=== PATIENT | female | born 1990 | race Caucasian/White ===

== ENCOUNTER 2016-05-12 22:16 | Emergency (ER) | payer OTHER ==
[2016-05-12 22:26] VITALS: BP 122/88; PULSE 99; RESP 16; TEMP 97.7; O2SAT 99
--- NOTE | 2016-05-12 22:36 | EDPHY ---
H & P Time Seen by Provider: 05/12/16 22:29 HPI/ROS: CHIEF COMPLAINT: Left wrist injury HISTORY OF PRESENT ILLNESS: 25-year-old female presents to the emergency department by private vehicle with injury to her left wrist. The patient was at a bar and fell back from the bar stool injuring her left wrist. She did not hit her head or lose consciousness. Denies neck or back pain. Denies chest pain or difficulty breathing. Denies injury to the lower extremities or the right upper extremity. He has pain in her left wrist especially with movement. She is right-hand dominant. REVIEW OF SYSTEMS: Constitutional: No fever, no chills. Eyes: No double or blurry vision. ENT: No sore throat. Respiratory: No cough, no shortness of breath. Cardiac: No chest pain. Gastrointestinal: No abdominal pain, vomiting or diarrhea. Genitourinary: No dysuria. Musculoskeletal: No neck or back pain. Skin: No rashes. Neurological: No headache. Past Medical/Surgical History: Negative Social History: Single Smoking Status: Light smoker Physical Exam: General Appearance: Alert, no distress. No visible signs of trauma to her head. She is mentating normally and answering questions appropriately. She does smell strongly of alcohol. Eyes: Pupils equal and round. Extraocular motions are all intact. ENT: Mouth: Mucous membranes moist. Respiratory: No wheezing, rhonchi, or rales, lungs are clear to auscultation. Cardiovascular: Regular rate and rhythm. Gastrointestinal: Abdomen is soft and nontender, no masses, no rebound or guarding, bowel sounds normal. Neurological: Alert and oriented x 3, cranial nerves II through XII grossly intact Skin: Warm and dry, no rashes. Musculoskeletal: Nontender to palpate along the cervical, thoracic or lumbar spine. Neck is supple. Extremities: Tender to palpate diffusely to the left wrist. She is unable to fully supinate without severe pain. She has pain with movement of her face left fingers. Strong radial pulse at the left wrist. Nontender to palpate over the left elbow. Full extension of the left elbow. Left humerus is nontender. Normal gait. Full range of motion of the right upper extremity. Psychiatric: Patient is oriented X 3, there is no agitation. Constitutional: Initial Vital Signs Temperature (C) 36.5 C 05/12/16 22:19 Heart Rate 99 05/12/16 22:19 Respiratory Rate 16 05/12/16 22:19 Blood Pressure 122/88 H 05/12/16 22:19 O2 Sat (%) 99 05/12/16 22:19 O2 Delivery Mode Room Air Allergies/Adverse Reactions: No Known Allergies Allergy (Verified 05/12/16 22:26) Home Medications: Medication Instructions Recorded NK [No Known Home Meds] 05/12/16 Medical Decision Making - Diagnostics Imaging: X-rays of the left wrist reveal no fractures. This is reviewed by myself the PAC system as well as by the radiologist. Procedures: Patient was placed in Velcro thumb spica splint and examined post application in good placement with normal BUILDING OFFICIAL. ED Course/Re-evaluation: 25-year-old female presents after mechanical fall with left wrist injury. X- rays reveal no fractures. She was placed in Velcro thumb spica splint and given orthopedic referral. Differential Diagnosis: Including but not limited to fracture, dislocation, contusion, sprain - Data Points Medications Given: Discontinued Medications Ibuprofen (Motrin) 600 mg PO EDNOW ONE Stop: 05/12/16 22:54 Last Admin: 05/12/16 23:02 Dose: 600 mg Departure - Departure Disposition: Home, Routine, Self-Care Clinical Impression: Left wrist sprain Qualifiers: Encounter type: initial encounter Qualified Code(s): S63.502A - Unspecified sprain of left wrist, initial encounter Condition: Good Instructions: Wrist Sprain (ED) Additional Instructions: Splint for comfort and support. Ibuprofen 600 mg every 8 hours as needed for pain. Follow up with orthopedic surgeon next week to recheck. Return if you develop numbness or tingling in your fingers, increasing pain or any other concerns. Referrals: Laith Winslow MD [Medical Doctor] - 2-3 days without fail (Orthopedic surgeon on-call)
[2016-05-12] MEDS ORDERED: IBUPROFEN 600 MG TAB PO ONE (22:53)
== END 2016-05-12 23:10 | disposition home or self-care (01) ==
DX: S63.502A Unspecified sprain of left wrist, initial encounter (principal); F17.200 Nicotine dependence, unspecified, uncomplicated; W07.XXXA Fall from chair, initial encounter; Y92.89 Other specified places as the place of occurrence of the external cause
CPT/HCPCS: L3807

== ENCOUNTER 2017-04-19 15:13 | Emergency (ER) | payer OTHER ==
[2017-04-19 15:20] VITALS: BP 100/75; PULSE 89; RESP 16; TEMP 97.7; O2SAT 95
--- NOTE | 2017-04-19 15:20 | EDPHY ---
H & P Time Seen by Provider: 04/19/17 15:14 - Personal History Tetanus Vaccine Date: <10 years - Medical/Surgical History Hx Asthma: No Hx Chronic Respiratory Disease: No Hx Diabetes: No Hx Cardiac Disease: No Hx Renal Disease: No Hx Cirrhosis: No Hx Alcoholism: No Hx HIV/AIDS: No Hx Splenectomy or Spleen Trauma: No Other PMH: anxiety, depression, UTI, kidney infection, ORIF to R wrist. - Social History Smoking Status: Light smoker Constitutional: Initial Vital Signs Temperature (C) 36.5 C 04/19/17 15:18 Heart Rate 89 04/19/17 15:18 Respiratory Rate 16 04/19/17 15:18 Blood Pressure 100/75 04/19/17 15:18 O2 Sat (%) 95 04/19/17 15:18 O2 Delivery Mode Room Air Allergies/Adverse Reactions: No Known Allergies Allergy (Verified 04/19/17 15:17) Home Medications: Medication Instructions Recorded Cephalexin [Keflex (RX)] 500 mg PO TID #30 cap 04/19/17 Paxil 04/19/17 Medical Decision Making ED Course/Re-evaluation: CHIEF COMPLAINT: Sore throat, hoarseness HISTORY OF PRESENT ILLNESS: The patient is a 26 y/o female with a history of anxiety and depression complaining of sore throat and hoarseness for the last week. Pain is mild in severity. She denies inability to swallow or difficulty breathing. No associated rhinorrhea, cough, fever, myalgias, nausea, vomiting, abdominal pain, diarrhea, or other complaints. REVIEW OF SYSTEMS: A 10 point review of systems was performed and is negative with the exception of the elements mentioned in the history of present illness. PHYSICAL EXAM: HR, BP, O2 Sat, RR. Temp noted General Appearance: Alert, well hydrated, appropriate, and non-toxic appearing. Head: Atraumatic without scalp tenderness or obvious injury Eyes: Pupils equal, round, reactive to light and accommodation, EOMI, no trauma , no injection. Ears: Clear bilaterally, no perforation, normal landmarks Nose: Atraumatic, no rhinorrhea, clear. Throat: Pharyngeal erythema with bilateral tonsillar exudates, no lesions, no evidence of abscess, uvula midline, mucus membranes moist. Neck: Supple, nontender, no lymphadenopathy. Respiratory: No retractions, no distress, no wheezes, and no accessory muscle use. Lungs are clear to auscultation bilaterally. Mild hoarseness. Cardiovascular: Regular rate and rhythm, no murmurs, rubs, or gallops. Good capillary refill all extremities. Gastrointestinal: Abdomen is soft, nontender, non-distended, no masses, no rebound, no guarding, no peritoneal signs. Musculoskeletal: Normal active ROM of all extremities, atraumatic. Neurological: Alert, appropriate, and interactive. Nonfocal neuro exam. Skin: No rashes, good turgor, no nodules on palpation. Past medical history: anxiety, depression, UTI, kidney infection Past surgical history: ORIF to R wrist Family history: Noncontributory Social history: Lives in [place]. Employed. DIFFERENTIAL DIAGNOSIS: The differential diagnosis for the patient's fever included but was not limited to pneumonia, urinary tract infection, viral syndrome, meningitis, and sepsis. MEDICAL DECISION MAKING: This is a 26 y/o female who presents with a 1-week history of sore throat with a hoarse voice. She has pharyngeal erythema with bilateral tonsillar exudates on exam. No evidence of peritonsillar abscess or airway compromise. Clinical presentation is consistent with bacterial throat infection. She will receive one does of 60mg PO prednisone and 500mg PO Keflex here and be discharged on a course of Keflex with standard pharyngitis care and follow up instructions. Return precautions given. She is comfortable with this plan. Departure - Departure Disposition: Home, Routine, Self-Care Clinical Impression: Acute bacterial pharyngitis, Ganglion cyst of dorsum of left wrist Condition: Good Instructions: Pharyngitis (ED), Ganglion Cysts (ED) Additional Instructions: 1. Take Keflex as prescribed for throat infection. Be sure to complete the entire prescription. 2. Increase fluid intake. 3. Use Tylenol and ibuprofen as directed as needed for pain or fever. 4. Follow up with your primary care provider as needed for unimproved symptoms over the next few days. 5. Return to the ED for severe pain, difficulty breathing, inability to swallow , or other worsening of condition. Adult Pain & Fever Control: We recommend Acetaminophen (Tylenol) and Ibuprofen (Motrin,Advil) for pain and fever control. When fever is high or pain severe, both drugs can be used at the same time, but at different intervals. Please note the time differences. Your dose is: Acetaminophen 650mg every 4 to 6 hours Ibuprofen 600mg every 6-8 hours with food Note: do not take Acetaminophen with Hydrocodone (Vicodin, Lortab) or Oxycodone (Percocet). These medications also contain Acetaminophen. No more than 3000mg of Acetaminophen should be taken in 24 hours (for an adult). Dr. Bellamy is a hand specialist you can follow up with for the possible ganglion cyst on your wrist. Referrals: Luis Antonio Bellamy MD [Medical Doctor] - As per Instructions Padmini Baez MD [Medical Doctor] - As per Instructions Prescriptions: Cephalexin [Keflex (RX)] 500 mg PO TID #30 cap Report Scribed for: Fidencio Rea Report Scribed by: Margarita Daly Date of Report: 04/19/17 Time of Report: 15:31
[2017-04-19] MEDS ORDERED: CEPHALEXIN 500 MG CAP PO ONE (15:33)
[2017-04-19] MEDS ORDERED: predniSONE 20 MG TAB PO ONE (15:33)
== END 2017-04-19 15:51 | disposition home or self-care (01) ==
DX: J02.8 Acute pharyngitis due to other specified organisms (principal); B96.89 Other specified bacterial agents as the cause of diseases classified elsewhere; M67.432 Ganglion, left wrist; F17.200 Nicotine dependence, unspecified, uncomplicated
CPT/HCPCS: J7512

== ENCOUNTER 2018-05-18 10:39 | Observation (INO) | payer OTHER ==
[2018-05-18 11:01] LABS: PLATELET COUNT 389 10^3/uL (150-400)
[2018-05-18] MEDS ORDERED: NS 1,000 ML IV ONE ×2 (11:15→11:57)
--- NOTE | 2018-05-18 11:18 | EDPHY ---
H & P Time Seen by Provider: 05/18/18 10:44 HPI/ROS: CHIEF COMPLAINT: Vomiting HISTORY OF PRESENT ILLNESS: 27-year-old female presents to the emergency department by ambulance with several days of vomiting. The patient states that she has been trying to help her symptoms why smoking marijuana and drinking alcohol. She describes mild diffuse abdominal pain. She complains of a headache. No fevers or chills. No chest pain or difficulty breathing. She feels very anxious. She states that she has never had these symptoms in the past. No reported trauma. No urinary symptoms. REVIEW OF SYSTEMS: Constitutional: No fever, no chills. Eyes: No double or blurry vision. ENT: No sore throat. Respiratory: No cough, no shortness of breath. Cardiac: No chest pain. Gastrointestinal: Abdominal pain, vomiting. No diarrhea. Genitourinary: No dysuria. Musculoskeletal: No neck or back pain. Skin: No rashes. Neurological: No headache. (Cheyenne Patton) Past Medical/Surgical History: Marijuana use, alcohol (Cheyenne Patton) Social History: Single (Cheyenne Patton) Physical Exam: General Appearance: Extremely anxious. Hyperventilating. Eyes: Pupils equal and round. Extraocular motions are all intact. ENT: Mouth: Very dry. Ecchymosis noted around the left lateral orbit. Respiratory: No wheezing, rhonchi, or rales, lungs are clear to auscultation. Cardiovascular: Regular rate and rhythm. Gastrointestinal: Mild diffuse pain with palpation to the abdomen. There is no rebound, guarding or masses noted. Neurological: Alert and oriented x 3, cranial nerves II through XII grossly intact Skin: Warm and dry, no rashes. Musculoskeletal: Nontender to palpate along the cervical, thoracic or lumbar spine. Neck is supple. Extremities: Full range of motion and no peripheral edema. Psychiatric: Patient is oriented X 3, there is no agitation. (Cheyenne Patton) Constitutional: Initial Vital Signs Temperature (C) 36.6 C 05/18/18 10:54 Heart Rate 108 H 05/18/18 10:54 Respiratory Rate 18 05/18/18 10:54 Blood Pressure 109/86 H 05/18/18 10:54 O2 Sat (%) 99 05/18/18 10:54 O2 Delivery Mode Room Air Allergies/Adverse Reactions: No Known Allergies Allergy (Verified 10/05/17 07:28) Home Medications: Medication Instructions Recorded NK [No Known Home Meds] 05/18/18 Medical Decision Making ED Course/Re-evaluation: 27-year-old female presents emergency department after multiple days of vomiting. Clinically appears ill and very dehydrated. She received a total of 3 L of IV normal saline in the emergency department. She also received 1 mg of IV lorazepam. She was feeling much better. Heart rate went from 150 down to 110. Laboratory studies reveal elevated white blood cell count of nearly 35, 000. She has a creatinine of 1.7 with a normal BUN. LFTs including AST and ALT were both elevated. Conjugated bilirubin was 1.3. Patient has very mild tenderness with palpation the epigastric area. There is no rebound or guarding or masses noted. No CVA tenderness bilaterally. The patient is tremulous. Patient tells me that she drinks "half a bottle of whiskey" per day. She has never had an alcohol withdrawal related seizure. She has never had pancreatitis before. Her boyfriend recently had pancreatitis. She has no chest pain or difficulty breathing. She does smoke marijuana regularly. The case was discussed with Dr. Varma, secondary supervising physician, who agrees with admission to the hospital. (Cheyenne Patton) Differential Diagnosis: Including but not limited to cyclical vomiting syndrome, dehydration, pancreatitis, hepatitis, acute renal injury (Cheyenne Patton) Other Provider: PHYSICIAN DOCUMENTATION: The patient was evaluated and managed by the Physician Skin Lifter Bacon. My co- signature indicates that I have reviewed this chart and I agree with the findings and plan of care as documented. I am the secondary supervising physician. (Christoph Varma) - Data Points Laboratory Results: Laboratory Results 05/18/18 10:50 05/18/18 10:50 05/18/18 05/18/18 05/18/18 10:50 10:50 10:50 WBC RBC Hgb Hct MCV MCH MCHC RDW Plt Count MPV Neut % (Auto) Lymph % (Auto) [place] % (Auto) Eos % (Auto) Baso % (Auto) Nucleat RBC Rel Count Absolute Neuts (auto) Absolute Lymphs (auto) Absolute Monos (auto) Absolute Eos (auto) Absolute Basos (auto) Absolute Nucleated RBC Immature Gran % Seg Neutrophils % Band Neutrophils % Lymphocytes % Monocytes % Eosinophils % Basophils % Metamyelocytes % Myelocytes % Promyelocytes % Blast Cells % Immature Gran # Absolute Seg Neuts Absolute Band Neuts Absolute Lymphocytes Absolute Monocytes Absolute Eosinophils Absolute Basophils Absolute Metamyelocyte Absolute Myelocytes Absolute Promyelocytes Absolute Plasma Cells Nucleated RBCs Absolute Blast Cells Plasma Cells % Platelet Estimate Polychromasia Pappenheimer Bodies Oval Macrocytes Smear Review By Sodium 138 mEq/L mEq/L (135-145) Potassium 5.8 mEq/L H mEq/L (3.5-5.2) Chloride 100 mEq/L mEq/L (97-110) Carbon Dioxide 6 mEq/l L* mEq/l (22-31) Anion Gap 32 mEq/L H mEq/L (6-14) BUN 9 mg/dL mg/dL (7-23) Creatinine 1.7 mg/dL H mg/dL (0.6-1.0) Estimated GFR 36 Glucose 45 mg/dL L mg/dL (70-100) Calcium 9.4 mg/dL mg/dL (8.5-10.4) Total Bilirubin 1.8 mg/dL H mg/dL (0.1-1.4) Conjugated Bilirubin 1.3 mg/dL H mg/dL (0.0-0.5) Unconjugated Bilirubin 0.5 mg/dL mg/dL (0.0-1.1) AST 333 IU/L H IU/L (14-46) ALT 115 IU/L H IU/L (9-52) Alkaline Phosphatase 111 IU/L IU/L (38-126) Total Protein 9.2 g/dL H g/dL (6.3-8.2) Albumin 5.7 g/dL H g/dL (3.5-5.0) Lipase < 60 IU/L IU/L (23-300) Beta HCG, Qual NEGATIVE 05/18/18 05/18/18 10:50 10:50 WBC 34.46 10^3/uL H 10^3/uL (3.80-9.50) RBC 4.90 10^6/uL 10^6/uL (4.18-5.33) Hgb 16.6 g/dL H g/dL (12.6-16.3) Hct 52.3 % H % (38.0-47.0) MCV 106.7 fL H fL (81.5-99.8) MCH 33.9 pg pg (27.9-34.1) MCHC 31.7 g/dL L g/dL (32.4-36.7) RDW 13.6 % % (11.5-15.2) Plt Count 389 10^3/uL 10^3/uL (150-400) MPV 8.7 fL fL (8.7-11.7) Neut % (Auto) Not Reported Lymph % (Auto) Not Reported [place] % (Auto) Not Reported Eos % (Auto) Not Reported Baso % (Auto) Not Reported Nucleat RBC Rel Count Not Reported Absolute Neuts (auto) Not Reported Absolute Lymphs (auto) Not Reported Absolute Monos (auto) Not Reported Absolute Eos (auto) Not Reported Absolute Basos (auto) Not Reported Absolute Nucleated RBC Not Reported Immature Gran % Not Reported Seg Neutrophils % 78.0 % % Band Neutrophils % 8.0 % % Lymphocytes % 7.5 % % Monocytes % 6.5 % % Eosinophils % 0.0 % % Basophils % 0.0 % % Metamyelocytes % 0.0 % % Myelocytes % 0.0 % % Promyelocytes % 0.0 % % Blast Cells % 0.0 % % Immature Gran # Not Reported Absolute Seg Neuts 26.88 10^3/uL H 10^3/uL (1.70-6.50) Absolute Band Neuts 2.76 10^3/uL H 10^3/uL (0.00-0.70) Absolute Lymphocytes 2.58 10^3/uL 10^3/uL (1.00-3.00) Absolute Monocytes 2.24 10^3/uL H 10^3/uL (0.30-0.80) Absolute Eosinophils 0.00 10^3/uL L 10^3/uL (0.03-0.40) Absolute Basophils 0.00 10^3/uL L 10^3/uL (0.02-0.10) Absolute Metamyelocyte 0.00 10^3/mL 10^3/mL (0.00-0.00) Absolute Myelocytes 0.00 10^3/mL 10^3/mL (0.00-0.00) Absolute Promyelocytes 0.00 10^3/uL 10^3/uL (0.00-0.00) Absolute Plasma Cells 0.00 10^3/uL 10^3/uL (0.00-0.00) Nucleated RBCs 0.5 /100 WBC H /100 WBC (0-0) Absolute Blast Cells 0.00 10^3/uL 10^3/uL (0.00-0.00) Plasma Cells % 0.0 % % Platelet Estimate ADEQUATE (ADEQ) Polychromasia 1+ H Pappenheimer Bodies 1+ H Oval Macrocytes 1+ H Smear Review By Pending Sodium REJ Potassium REJ Chloride REJ Carbon Dioxide REJ Anion Gap REJ BUN REJ Creatinine REJ Estimated GFR REJ Glucose REJ Calcium REJ Total Bilirubin Conjugated Bilirubin Unconjugated Bilirubin AST ALT Alkaline Phosphatase Total Protein Albumin Lipase Beta HCG, Qual Medications Given: Sodium Chloride (Ns) 1,000 mls @ 125 mls/hr IV CONT RAVEN Stop: 11/14/18 12:14 Last Admin: 05/18/18 14:53 Dose: 1,000 mls Discontinued Medications Sodium Chloride (Ns) 1,000 mls @ 0 mls/hr IV ONCE ONE PRN Reason: Wide Open Stop: 05/18/18 11:16 Last Admin: 05/18/18 11:25 Dose: 1,000 mls Sodium Chloride (Ns) 1,000 mls @ 0 mls/hr IV ONCE ONE PRN Reason: Wide Open Stop: 05/18/18 11:58 Last Admin: 05/18/18 12:03 Dose: 1,000 mls Lorazepam (Ativan Injection) 1 mg IVP EDNOW ONE Stop: 05/18/18 11:23 Last Admin: 05/18/18 11:25 Dose: 1 mg Departure - Departure Disposition: [facility] Clinical Impression: Acute kidney injury, Dehydration Vomiting Qualifiers: Vomiting type: unspecified Vomiting Intractability: non-intractable Nausea presence: with nausea Qualified Code(s): R11.2 - Nausea with vomiting, unspecified Condition: Fair
[2018-05-18] MEDS ORDERED: LORazepam 2 MG/ML INJ IVP ONE (11:22)
[2018-05-18] MEDS ORDERED: PROMETHAZINE HCL 25 MG/ML INJ IVP PRN (12:03)
[2018-05-18] MEDS ORDERED: ACETAMINOPHEN 325 MG TAB PO PRN (12:03)
[2018-05-18] MEDS ORDERED: ONDANSETRON 4 MG/2 ML VIAL IVP PRN (12:03)
[2018-05-18] MEDS ORDERED: FLUMAZENIL 0.5 MG/5 ML MDV IVP PRN (12:07)
[2018-05-18] MEDS ORDERED: MAG HYDROX/AL HYDROX/SIMETH 30 ML UDCUP PO PRN (12:07)
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
[2018-05-18] MEDS: NS 1,000 ML IV SCH (14:53)
[2018-05-18] MEDS: FAMOTIDINE 20 MG TAB PO SCH ×2 (17:26→23:21)
[2018-05-18 17:34] LABS: INR 1.19 (0.83-1.16); PROTIME(PATIENT) 14.6 SEC (12.0-15.0)
[2018-05-18] MEDS ORDERED: NS 1,800 ML IV ONE ×2 (17:44→19:24)
[2018-05-18] MEDS ORDERED: NS 1,200 ML IV ONE (18:00)
[2018-05-18] MEDS: ACETAMINOPHEN 325 MG TAB PO SCH ×2 (18:07→23:21)
[2018-05-18] MEDS: LORazepam 2 MG/ML INJ IVP PRN ×2 (20:14→23:28)
[2018-05-19] MEDS: LORazepam 2 MG/ML INJ IVP PRN ×2 (03:26→09:44)
[2018-05-19] MEDS: ACETAMINOPHEN 325 MG TAB PO SCH ×6 (03:28→21:58)
[2018-05-19 07:02] LABS: PLATELET COUNT 194 10^3/uL (150-400)
[2018-05-19] MEDS: FOLIC ACID 1 MG TAB PO SCH (09:28)
[2018-05-19] MEDS: FAMOTIDINE 20 MG TAB PO SCH ×2 (09:28→21:20)
[2018-05-19] MEDS: MULTIVITAMINS 1 EACH TAB PO SCH (09:28)
[2018-05-19] MEDS: THIAMINE HCL 500 MG in NS 100 ML IV SCH (09:29)
[2018-05-19] MEDS: ONDANSETRON DISINTEGRATING 4 MG TAB PO PRN ×2 (09:37→15:55)
--- NOTE | 2018-05-19 11:31 | ASMTCMCOM ---
CM Note CM Note Notes: CM called pt's insurance plan [employer] [phone] and spoke to Stephania, regarding the pt needing to be transferred to an in network facility if stable. Per MD, pt stable but will likely dc tomorrow. Ultimately they wanted pt to be transported even if it was for 1 day. Unfortunately unable to find in network hospital in [place], they are out of [place]. She will have Insurance team call CM back. DC Plan: Transfer vs home Independent Date Signed: 05/19/2018 11:31 AM Electronically Signed By:Cathleen Ferguson RN
[2018-05-19 12:07] LABS: GC AMPLIFICATION GENPROBE NEGATIVE (NEGATIVE)
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
[2018-05-19] MEDS: NS 1,000 ML IV SCH (18:12)
[2018-05-20] MEDS: ACETAMINOPHEN 325 MG TAB PO SCH ×4 (02:37→14:29)
[2018-05-20] MEDS: FAMOTIDINE 20 MG TAB PO SCH (08:20)
[2018-05-20] MEDS: FOLIC ACID 1 MG TAB PO SCH (08:20)
[2018-05-20] MEDS: THIAMINE HCL 500 MG in NS 100 ML IV SCH (08:20)
[2018-05-20] MEDS: MULTIVITAMINS 1 EACH TAB PO SCH (08:20)
[2018-05-20 08:27] LABS: PLATELET COUNT 200 10^3/uL (150-400)
[2018-05-20 12:17] VITALS: BP 105/72
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
[2018-05-21] MEDS ORDERED: THIAMINE HCL 100 MG TAB PO SCH (12:07)
== END 2018-05-20 17:51 | disposition home or self-care (01) ==
LOC: EDUNIT# → EDBD → F3N 14:40
PROVIDERS: ADMIT Family Medicine; ATTEND Family Medicine
DX: A41.9 Sepsis, unspecified organism (principal); N39.0 Urinary tract infection, site not specified; E87.5 Hyperkalemia; E86.0 Dehydration; N17.9 Acute kidney failure, unspecified; R74.0 Nonspecific elevation of levels of transaminase and lactic acid dehydrogenase [LDH]; R11.2 Nausea with vomiting, unspecified; F41.9 Anxiety disorder, unspecified; A56.02 Chlamydial vulvovaginitis
CPT/HCPCS: 71046; 76770; 96361; 96374; 99285; G0378; 80307; G0480; J0696; J1956; J2060; J3411